=== PATIENT | female | born 1970 | race Caucasian/White ===

== ENCOUNTER 2023-11-22 09:38 | Emergency (ER) | payer MEDICAID, SELFPAY ==
[2023-11-22] VITALS (7 sets, daily range): BP systolic 121–134; BP diastolic 70–82; PULSE 75–108; RESP 14–18; TEMP 36.1–36.4; O2SAT 97–100; BMI 28.1
--- NOTE | ~2023-11-22 | CT_ITS ---
EXAMINATION: CT ABDOMEN AND PELVIS WITHOUT CONTRAST CLINICAL INFORMATION: Flank/lower abdominal pain with vomiting COMPARISON: None available. TECHNIQUE: Multidetector volumetric imaging was performed from the superior aspect of the liver through the pubic symphysis. Sagittal and coronal reformatted images were obtained on the technologist's workstation. This CT examination was performed using dose optimization techniques as appropriate, variously including the following: *Automated exposure control *Adjustment of mA and/or kV according to patient size (this includes techniques or standardized protocols for targeted exams where dose is matched to indication/reason for exam; i.e. extremities or head) *Use of iterative reconstruction technique DLP: 475 mGy-cm FINDINGS: LUNG BASES: The visualized lung bases are unremarkable. LIVER, GALLBLADDER, AND BILIARY TREE: Liver is of low attenuation due to hepatic steatosis. There are no intrahepatic masses or ductal dilatation seen. The liver is enlarged. There is no ascites seen possibly small calculi seen. PANCREAS: Unremarkable. SPLEEN: Unremarkable. ADRENAL GLANDS: Unremarkable. KIDNEYS AND URETERS: The kidneys are normal in size, shape, and attenuation. No hydronephrosis, hydroureter, or calculi seen. No perinephric stranding. BLADDER: Unremarkable. GASTROINTESTINAL TRACT: The small and large bowel are unremarkable. The appendix is unremarkable. ABDOMINAL WALL: No significant hernia is appreciated. LYMPH NODES: Normal. VASCULAR: Unremarkable. PELVIC VISCERA: Unremarkable. OSSEOUS STRUCTURES: There are mild degenerative changes with Schmorl's nodes in endplates of L1 T9, T8 vertebral bodies. CT/CT abdomen pelvis wo IV con IMPRESSION: Hepatomegaly and hepatic steatosis. Fleischner guidelines were followed.
--- NOTE | ~2023-11-22 | US_ITS ---
EXAMINATION: US ABDOMEN LIMITED CLINICAL INFORMATION: Elevated liver enzymes. Pain. COMPARISON: None available. TECHNIQUE: Real-time imaging of the right upper quadrant abdominal viscera. FINDINGS: The study is limited to evaluation of the gallbladder. There is sludge, versus a stone near the fundus, at 14 x 7 x 8 mm. Gallbladder is contracted and the gallbladder wall is thickened at 7 mm. No evidence for pericholecystic fluid. The patient does report discomfort and tenderness in the right upper quadrant during scanning. Common duct measures 4 mm in diameter. US/US abdomen limited IMPRESSION: Gallbladder sludge or small stones within the contracted gallbladder. The common duct is 7 mm.
[2023-11-22 10:03] LABS: MANUAL DIFF FLAG NO
[2023-11-22 10:05] LABS: Appearance Urine Hazy; Color Urine DK YELLOW; Glucose Urine UA Negative (Negative); Leukocyte Esterase Urine Negative (Negative); Nitrite Urine Positive (Negative); PH 6.5 (5.0-9.0); Specific Gravity - Urine 1.025 (1.005-1.025); UMIC TRIGGER UACC YES; Urine Blood Negative (Negative); Urine Ketones 15 mg/dL (Negative); Urine Protein 30 (1+) mg/dL (Neg-Trace)
[2023-11-22 10:07] LABS: Basophils Percent Auto 0.4 % (0-2); Eosinophils Absolute Auto 0.1 X10*3/uL (0.0-0.4); Hematocrit 36.7 % (37.0-47.0); Hemoglobin 12.7 g/dl (12.0-16.0); Imm Gran Abs Auto 0.01 X10*3/uL (0.00-0.03); Imm Gran Pct Auto 0.1 % (0.0-0.4); Lymphocytes Absolute Auto 1.3 X10*3/uL (1.2-4.9); Lymphocytes Percent Auto 18.4 % (20-40); Mean Corpuscular HGB Conc 34.6 g/dl (31.0-35.0); Mean Corpuscular Hemoglobin 37.5 pg (27.0-33.0); Mean Corpuscular Volume 108.3 fL (80.0-98.0); Mean Platelet Volume 10.9 fL (9.4-12.3); Monocytes Absolute Auto 0.5 X10*3/uL (0.1-1.2); Monocytes Percent Auto 7.4 % (2-11); Neutrophils Absolute Auto 5.3 x10*3/uL (2.0-8.3); Neutrophils Percent Auto 72.7 % (45-73); Platelet Count 105 X10*3/uL (160-400); Red Blood Count 3.39 X10*6/uL (4.20-5.50); Red Cell Distribution Width 15.4 % (11.0-16.0); White Blood Count 7.3 X10*3/uL (4.8-10.8)
--- NOTE | 2023-11-22 10:13 | ED_ITS ---
HPI - General Adult General Chief complaint: Abdominal Pain Stated complaint: Back and Private Area Pain Time Seen by Provider: 11/22/23 10:12 Source: patient Mode of arrival: ambulatory Limitations: language barrier History of Present Illness HPI narrative: 53 F, [place] speaking only, fitness attendant was used for this encounter. Patient was also accompanied by her family member. She reports right-sided flank pain and lower abdomen pain x2 weeks. Symptoms started when she was back in [place]. Patient was informed that she is losing protein in her urine, however, she was not able to elaborate on the details. She reports that symptoms are intermittent and also accompanied by nausea and vomiting. She states that she experienced symptoms last night but today is feeling somewhat better. She reports history of intermittent constipation and diarrhea. Last bowel movement was this morning and was normal in appearance, no blood or melena. Patient also states that she is drinking plenty of water, however, does not produce much urine and her urine appears dark in color. Patient also notes intermittent pain with urination and urgency. She denies fever, prior similar symptoms, chest pain, shortness of breath, cough, hemoptysis or any other symptoms. Patient notes that since 2 days ago she has been experiencing mild headaches and feeling lightheaded. Related Data Previous Rx's ?Medication ?Instructions ?Recorded cefdinir 300 mg capsule 300 mg PO BID 10 days #20 caps 11/22/23 ondansetron 4 mg disintegrating 4 mg PO Q6H PRN nausea and 11/22/23 tablet vomiting #20 tabs Allergies Allergy/AdvReac Type Severity Reaction Status Date / Time No Known Allergies Allergy Verified 11/22/23 09:49 Review of Systems 2 Review of Systems: per HPI Yes all other systems are reviewed and are negative [facility] Social History Social History Unable to assess alcohol history related to: Unknown Smoked in Last 30 Days: No Advance Directives: No Advance Directives Information Provided: Yes Do you have a plan to hurt others: No Plan Patient : No Physical Exam ED Vital Signs: Vital Signs - 24 hr 11/22/23 09:43 11/22/23 11:46 11/22/23 11:47 Temperature 97.2 F Pulse Rate 108 H 77 75 Respiratory Rate 18 Blood Pressure 122/80 121/75 130/79 Pulse Oximetry 100 Oxygen Delivery Method Room Air 11/22/23 11:50 11/22/23 14:25 11/22/23 17:50 Temperature 97.0 F 97.5 F Pulse Rate 83 85 80 Respiratory Rate 14 14 Blood Pressure 133/82 134/70 126/80 Pulse Oximetry 97 100 Oxygen Delivery Method Room Air Room Air BMI result Body Mass Index 28.1 Const General: healthy appearing, comfortable, no acute distress, well developed and alert Nutritional Appearance: average body habitus Orientation/consciousness: patient oriented x3 Limitations: language barrier HENMT Head: Yes normal to inspection, Yes normocephalic and Yes atraumatic Mouth: Normal oral and palatal mucosa present, lip normal, tongue normal and moist mucous membranes Eyes General: appearance normal, both eyes and all related structures Pupils: Equal, round and reactive pupils present EOM: EOMs intact bilaterally Neck Neck: Yes normal visual inspection, Yes full ROM and Yes no lymphadenopathy Resp Effort & Inspection: normal respiratory effort and able to speak in complete sentences Auscultation: clear to auscultation bilaterally Cardio Jugular venous distension: no JVD Rate: tachycardic Rhythm: regular rhythm and abnormal rhythm Heart sounds: S1 normal heart sound present and S2 normal heart sound present Peripheral pulses: Peripheral pulses 2+ throughout GI Other: no rebound or guarding; no peritoneal signs; No RUQ tenderness; negative Crockett's sign. Inspection: Yes normal to inspection Palpation (GI): Soft to palpation and Tenderness to palpation present (GI) (mild tenderness to LLQ;) in the LLQ Auscultation: normal bowel sounds General: Yes CVA tenderness (mild right CVA tenderness ) Back/Spine/Pelvis Back: CVA tenderness (mild right CVA tenderness ) Skin General skin exam: no rashes or lesions noted Neuro General: patient oriented x3, gait normal and no focal motor deficits Cranial nerves: Yes Equal, round and reactive pupils present Motor exam (neuro): 5/5 motor strength present throughout Medical Decision Making Medical Decision Making MDM Narrative: 53 yo female with PMH of childhood hepatitis B. who presents to the ED with complaint of right upper intermittent abdomen/flank pain, nausea and vomiting. HPI and physical exam as above. Upon presentation patient is hemodynamically stable, alert and oriented X3, vital sign are reassuring, patient is well appearing, no acute distress, not acutely ill or toxic. laboratory results are without leukocytosis but notable for elevated LFTs. Unclear if findings are chronic as there are no previous labs to compare. Abdominal CT showed: Hepatomegaly and hepatic steatosis. Billiary US showed: The study is limited to evaluation of the gallbladder. There is sludge, versus a stone near the fundus, at 14 x 7 x 8 mm. Gallbladder is contracted and the gallbladder wall is thickened at 7 mm. No evidence for pericholecystic fluid. The patient does report discomfort and tenderness in the right upper quadrant during scanning. Given results and clinical presentation case was discussed with surgery window air conditioner installer, Dr. Potts, who advised low fat diet, outpatient labs in 3 days and close outpatient follow up with surgery early next week. Discussed results of evaluation and surgery recommendations with the patient. it was also noted that patient's urinalysis was positive for nitrates, 1+ protein and 1+ bacteria; given symptoms of urinary urgency and presence of back pain concerned for possible pyelonephritis. Will administer one dose of Ceftriaxone 1g IV and provide prescription for Cefdnir 300mg PO X10 days. patient was advised to follow up with surgery outpatient and call local primary care clinics to establish care for proper follow up. Advised on supportive care. Discussed return precautions. Discussed with the patient when to seek medical attention and return to the ED for re-evaluation. Patient expressed understanding and agreed to the treatment plan. Case was discussed with ED attending physician Dr. Marcum who concurred evaluation and treatment plan. Admission/Observation Consideration of admission/observation: Escalation of care including admission/observation considered Consult Healthcare Provider Management of the patient was discussed with: Editor & Co Founder (General Surgery window air conditioner installer Dr. Potts) Lab Data MDM Lab Attestation statement: I reviewed the patient's lab results. 11/22/23 09:59 11/22/23 09:59 Labs: Lab Results 11/22/23 Range/Units 09:59 WBC 7.3 (4.8-10.8) X10*3/uL RBC 3.39 L (4.20-5.50) X10*6/uL Hgb 12.7 (12.0-16.0) g/dl Hct 36.7 L (37.0-47.0) % MCV 108.3 H (80.0-98.0) fL MCH 37.5 H (27.0-33.0) pg MCHC 34.6 (31.0-35.0) g/dl RDW 15.4 (11.0-16.0) % Plt Count 105 L (160-400) X10*3/uL MPV 10.9 (9.4-12.3) fL Immature Gran % (Auto) 0.1 (0.0-0.4) % Neut % (Auto) 72.7 (45-73) % Lymph % (Auto) 18.4 L (20-40) % [place] % (Auto) 7.4 (2-11) % Eos % (Auto) 1.0 (0-4) % Baso % (Auto) 0.4 (0-2) % Lymph # (Auto) 1.3 (1.2-4.9) X10*3/uL [place] # (Auto) 0.5 (0.1-1.2) X10*3/uL Eos # (Auto) 0.1 (0.0-0.4) X10*3/uL Baso # (Auto) 0.0 (0.0-0.2) X10*3/uL Abs Immat Gran (auto) 0.01 (0.00-0.03) X10*3/uL Absolute Neuts (auto) 5.3 (2.0-8.3) x10*3/uL Absolute Nucleated RBC 0.000 (0.0-0.012) X10*3/uL Nucleated RBC % (auto) 0.0 (0.0-0.2) /100WBC Sodium 136 (135-145) mmol/L Potassium 3.6 (3.3-5.1) mmol/L Chloride 98 (96-108) mmol/L Carbon Dioxide 27 (22-29) mmol/L Anion Gap 15 (12-20) BUN 7 L (9-16) mg/dL Creatinine 0.65 (0.5-1.4) mg/dL Estim Creat Clear Calc 82.4 Estimated GFR > 60 Random Glucose 103 (60-115) mg/dL Calcium 10.7 H (8.4-10.2) mg/dL Total Bilirubin 2.4 H (0.0-1.0) mg/dL Direct Bilirubin 1.2 H (0.0-0.5) mg/dL AST 171 H (5-31) U/L ALT 40 H (0-31) U/L Alkaline Phosphatase 166 H (39-117) U/L Total Protein 8.4 H (6.5-8.0) g/dL Albumin 3.6 (3.5-5.0) g/dL Lipase 48 (8-78) U/L Urine Color DK YELLOW Urine Appearance Hazy Urine pH 6.5 (5.0-9.0) Ur Specific Pedro 1.025 (1.005-1.025) Urine Protein 30 (1+) H (Neg-Trace) mg/dL Urine Glucose (UA) Negative (Negative) mg/dL Urine Ketones 15 (Negative) mg/dL Urine Blood Negative (Negative) Urine Nitrite Positive H (Negative) Ur Leukocyte Esterase Negative (Negative) Urine RBC 0-2 (0-2) /HPF Urine WBC 0-5 (0-5) /HPF Ur Squamous Epith Cells 3-5 (0-2) /HPF Calcium Oxalate Crystal Present Urine Bacteria 1+ (None Seen) Hyaline Casts 0-2 (0-2) /LPF Radiology Impression Discussion of test interpretation with radiology: I have reviewed the radiologist's reading. Prescription Management I considered prescription management with: Antibiotic (Ceftriaxone 1g IV) Chronic Conditions Patient?s care impacted by: Other Hepatitis B Social Determinants Patient?s care significantly limited by Social Determinants of Health including: Problems related to primary support group Needs Primary Care Provider Discharge Plan Discharge Clinical Impression: Biliary colic, Pyelonephritis Patient Disposition: Home, Self-Care Instructions: Biliary Colic (ED), Kidney Infection (ED) Additional Instructions: Please, return to the hospital for blood work on Tuesday11/25/2023. Call General surgery office (contact information is provided) to schedule a follow up appointment for further management and evaluation of the gallstones. Please, avoid any fatty, spicy, fried foods it will help to prevent symptoms of pain, nausea, and vomiting. You were also given prescription for zofran (nausea medication) to take as needed for nausea. We were also concerned for kidney infection. You were given prescription for antibiotics. Please, take as advised and make sure to complete the entire course even if you feel better. Please, call local primary care clinics to establish care for proper follow up and treatment of chronic conditions. if you develop any new or concerning symptoms, please return to the ED for re- evaluation. Prescriptions: New ondansetron 4 mg tablet,disintegrating 4 mg PO Q6H PRN (Reason: nausea and vomiting) Qty: 20 0RF cefdinir 300 mg capsule 300 mg PO BID 10 Days Qty: 20 0RF Referrals: Eli Potts MD [Physician] - Print Language: [place]
[2023-11-22 10:14] LABS: Bacteria Urine 1+ (None Seen); Calcium Oxalate Crystals Urine Present; Hyaline Casts Urine 0-2 /LPF (0-2); RBC Urine 0-2 /HPF (0-2); UACC Culture Trigger YES; WBC Urine 0-5 /HPF (0-5)
[2023-11-22 10:28] LABS: Alanine Aminotransferase 40 U/L (0-31); Albumin Level 3.6 g/dL (3.5-5.0); Alkaline Phosphatase 166 U/L (39-117); Anion Gap 15 (12-20); Aspartate Amino Transferase 171 U/L (5-31); Bilirubin Direct 1.2 mg/dL (0.0-0.5); Bilirubin Total 2.4 mg/dL (0.0-1.0); Blood Urea Nitrogen 7 mg/dL (9-16); Calcium 10.7 mg/dL (8.4-10.2); Carbon Dioxide 27 mmol/L (22-29); Chloride 98 mmol/L (96-108); Creatinine Clr Calc Pharmacy 82.4; Estimated Glomerular Filt Rate > 60; Glucose Random 103 mg/dL (60-115); Lipase 48 U/L (8-78); Potassium 3.6 mmol/L (3.3-5.1); Sodium 136 mmol/L (135-145); Total Protein 8.4 g/dL (6.5-8.0)
[2023-11-22] MEDS: cefTRIAXone sodium 1 GM in 0.9 % Sodium Chloride 50 ML IV (18:30)
== END 2023-11-22 19:39 | disposition home or self-care (01) ==
PROVIDERS: Emergency Provider Emergency Medicine
DX: N12 Tubulo-interstitial nephritis, not specified as acute or chronic (principal); K80.50 Calculus of bile duct without cholangitis or cholecystitis without obstruction
CPT/HCPCS: 36415; 74176; 76705; 80048; 80076; 81001; 83690; 85025; 87086; 96365; 99284; J0696

== ENCOUNTER 2023-11-28 13:38 | Emergency (ER) | payer MEDICAID, SELFPAY ==
[2023-11-28 13:43] VITALS: BP 102/61; PULSE 92; RESP 16; TEMP 37.5; O2SAT 100; BMI 27.5
--- NOTE | 2023-11-28 13:46 | ED.GENADULT ---
[facility] - General Adult General Chief complaint: Abdominal Pain Stated complaint: abd pain Time Seen by Provider: 11/28/23 19:39 Source: patient and variety performer Mode of arrival: ambulatory History of Present Illness HPI narrative: 53-year-old female, recently moved here from [place] and seen here last Tuesday and diagnosed with urinary tract infection and started on cefdinir presents stating that she has back pain bilaterally which radiates into her abdomen, patient does take CBD on her cigarettes which she smokes daily for chronic pain. She has recently been accepted onto [facility] and is in the process of setting up care with a primary care doctor. She otherwise denies any fevers or chills or nausea or vomiting but does report frequent urination. Related Data Previous Rx's ?Medication ?Instructions ?Recorded ondansetron 4 mg disintegrating 4 mg PO Q6H PRN nausea and 11/22/23 tablet vomiting #20 tabs Allergies Allergy/AdvReac Type Severity Reaction Status Date / Time No Known Allergies Allergy Verified 11/28/23 13:44 Review of Systems Review of Systems: Pertinent positives and negatives as stated in [facility] Past Medical History Source: nursing notes reviewed Social History Social History Unable to assess alcohol history related to: Unknown Advance Directives: No Advance Directives Information Provided: Yes Do you have a plan to hurt others: No Plan Physical Exam ED Vital Signs: Vital Signs - 24 hr 11/28/23 13:43 Temperature 99.5 F Pulse Rate 92 Respiratory Rate 16 Blood Pressure 102/61 Pulse Oximetry 100 Oxygen Delivery Method Room Air BMI result Body Mass Index 27.5 VITAL SIGNS: Reviewed. GENERAL: Well developed, well nourished, in no acute distress. HEAD: Normocephalic/atraumatic EYES: PERRLA, EOMI EARS: Ext canals without abnormality NOSE: Nares patent bilateral OROPHARYNX: no oral lesions noted, posterior pharynx clear NECK: Supple, no adenopathy LUNGS: Normal breath sounds. No adventitious sounds or accessory muscle use. SpO2<100> CARDIOVASCULAR: Regular rate and rhythm without noted murmurs ABDOMEN: Soft, non-tender, non-distended with bowel sounds. MUSCULOSKELETAL: No tenderness, deformities, or effusions noted on gross inspection. EXTREMITIES: No cyanosis, clubbing or edema. SKIN: Inspection of the skin reveals no rashes NEUROLOGIC: Alert and oriented x 4. Strength and sensation to light touch were grossly intact x 4. Course Course Course Narrative: RME performed by Shanice Harper PA-C. Patient is a 53 year old assigned female at presenting to the emergency department with abdominal pain and nausea. Patient states that she was recently seen here recently for a biliary colic and a kidney infection. Patient states that she has been drinking a lot of water and not making much urine. Detailed physical exam and review of systems are deferred to the soil checker. Labs ordered. Patient placed back in the waiting room pending room availability and results. Medical Decision Making Medical Decision Making [facility] Narrative: 53-year-old female with history and clinical presentation, DDX: UTI/diabetes/psychiatric basis for frequent urination/chronic back pain I reviewed all investigations and hematologic indices are stable when compared to prior visit, there is no leukocytosis or left shift, there is no anemia or thrombocytopenia. Chemistry indices negative for DANAY or electrolyte derangements in LFTs are chronically stable with elevated transaminases and suspect that this is due to underlying alcohol use. No findings or evidence to suggest acute intra-abdominal infection/renal colic/pyelonephritis. Viral testing is negative for influenza/RSV/COVID-19. I reviewed last visit in although patient's urinalysis was positive for nitrite, microbiology of the urine does not report any bacterial infection. Will direct patient to stop antibiotics. There is no evidence of elevated glucose to explain patient's frequent urination. Patient did not provide a urine sample for today, magnesium being low and repleted with 400 mg of magnesium oxide. Patient was strongly encouraged to follow-up with your primary care doctor and also instructed to stop antibiotics as there was no growth on her urine culture. Differential Diagnosis Differential Diagnoses: The differential diagnosis associated with the presentation includes Please see the discussion above Admission/Observation Consideration of admission/observation: Escalation of care including admission/observation considered Please see the discussion above Lab Data [facility] Lab Attestation statement: I reviewed the patient's lab results. Please see the discussion above 11/28/23 15:22 11/28/23 15:22 Labs: Lab Results 11/28/23 Range/Units 15:22 WBC 5.6 (4.8-10.8) X10*3/uL RBC 3.46 L (4.20-5.50) X10*6/uL Hgb 12.8 (12.0-16.0) g/dl Hct 37.8 (37.0-47.0) % MCV 109.2 H (80.0-98.0) fL MCH 37.0 H (27.0-33.0) pg MCHC 33.9 (31.0-35.0) g/dl RDW 16.1 H (11.0-16.0) % Plt Count 209 D (160-400) X10*3/uL MPV 10.1 (9.4-12.3) fL Immature Gran % (Auto) 0.2 (0.0-0.4) % Neut % (Auto) 63.6 (45-73) % Lymph % (Auto) 19.3 L (20-40) % [place] % (Auto) 14.8 H (2-11) % Eos % (Auto) 1.4 (0-4) % Baso % (Auto) 0.7 (0-2) % Lymph # (Auto) 1.1 L (1.2-4.9) X10*3/uL [place] # (Auto) 0.8 (0.1-1.2) X10*3/uL Eos # (Auto) 0.1 (0.0-0.4) X10*3/uL Baso # (Auto) 0.0 (0.0-0.2) X10*3/uL Abs Immat Gran (auto) 0.01 (0.00-0.03) X10*3/uL Absolute Neuts (auto) 3.6 (2.0-8.3) x10*3/uL Absolute Nucleated RBC 0.000 (0.0-0.012) X10*3/uL Nucleated RBC % (auto) 0.0 (0.0-0.2) /100WBC Sodium 141 (135-145) mmol/L Potassium 4.1 (3.3-5.1) mmol/L Chloride 106 (96-108) mmol/L Carbon Dioxide 28 (22-29) mmol/L Anion Gap 11 L (12-20) BUN 9 (9-16) mg/dL Creatinine 0.68 (0.5-1.4) mg/dL Estim Creat Clear Calc 91.2 Estimated GFR > 60 Random Glucose 91 (60-115) mg/dL Calcium 10.2 (8.4-10.2) mg/dL Magnesium 1.5 L (1.6-2.6) mg/dL Total Bilirubin 0.9 (0.0-1.0) mg/dL AST 121 H (5-31) U/L ALT 35 H (0-31) U/L Alkaline Phosphatase 130 H (39-117) U/L Total Protein 7.4 (6.5-8.0) g/dL Albumin 3.3 L (3.5-5.0) g/dL Influenza Type A (PCR) NEGATIVE (Negative) Influenza Type B (PCR) NEGATIVE (Negative) RSV RNA Qual (PCR) NEGATIVE (Negative) SARS-CoV-2 RNA (RT-PCR) NEGATIVE (Negative) External Record Review External record reviewed: Outpatient record, Prior outpatient labs and Prior outpatient radiology Chronic Conditions Anxiety, depression, everyday smoker Critical Care Time Critical Care Time Critical Care Time: Yes Total Critical Care Time: 45 Attestation: I personally attest to this time spent taking care of the patient. Discharge Plan Discharge Clinical Impression: Chronic pain, Anxiety, Depression, Frequent urination, Hypomagnesemia Patient Disposition: Home, Self-Care Instructions: Chronic Pain (ED) Additional Instructions: 1. I reviewed the urine culture from your visit last week, there is no bacterial growth and recommend that you stop taking antibiotics at this time. 2. Your workup today was otherwise within normal limits with the exception of a low magnesium and your provided with magnesium oxide (this is available [email or web address]). 3. Recommend [id number] Tylenol/ibuprofen/lidocaine patch for your back pain. Prescriptions: Discontinued cefdinir 300 mg capsule 300 mg PO BID 10 Days Qty: 20 0RF No Action ondansetron 4 mg tablet,disintegrating 4 mg PO Q6H PRN (Reason: nausea and vomiting) Qty: 20 0RF Print Language: Grenadian
[2023-11-28 15:27] LABS: MANUAL DIFF FLAG NO
[2023-11-28 15:28] LABS: Basophils Percent Auto 0.7 % (0-2); Eosinophils Absolute Auto 0.1 X10*3/uL (0.0-0.4); Eosinophils Percent Auto 1.4 % (0-4); Hematocrit 37.8 % (37.0-47.0); Hemoglobin 12.8 g/dl (12.0-16.0); Imm Gran Abs Auto 0.01 X10*3/uL (0.00-0.03); Imm Gran Pct Auto 0.2 % (0.0-0.4); Lymphocytes Absolute Auto 1.1 X10*3/uL (1.2-4.9); Lymphocytes Percent Auto 19.3 % (20-40); Mean Corpuscular HGB Conc 33.9 g/dl (31.0-35.0); Mean Corpuscular Volume 109.2 fL (80.0-98.0); Mean Platelet Volume 10.1 fL (9.4-12.3); Monocytes Absolute Auto 0.8 X10*3/uL (0.1-1.2); Monocytes Percent Auto 14.8 % (2-11); Neutrophils Absolute Auto 3.6 x10*3/uL (2.0-8.3); Neutrophils Percent Auto 63.6 % (45-73); Platelet Count 209 X10*3/uL (160-400); Red Blood Count 3.46 X10*6/uL (4.20-5.50); Red Cell Distribution Width 16.1 % (11.0-16.0); White Blood Count 5.6 X10*3/uL (4.8-10.8)
[2023-11-28 16:04] LABS: Influenza A PCR NEGATIVE (Negative); Influenza B PCR NEGATIVE (Negative); Resp Syncy Virus RNA Qual PCR NEGATIVE (Negative); SARS COV2 PCR INHOUSE NEGATIVE (Negative)
[2023-11-28 16:10] LABS: Alanine Aminotransferase 35 U/L (0-31); Albumin Level 3.3 g/dL (3.5-5.0); Alkaline Phosphatase 130 U/L (39-117); Anion Gap 11 (12-20); Aspartate Amino Transferase 121 U/L (5-31); Bilirubin Total 0.9 mg/dL (0.0-1.0); Blood Urea Nitrogen 9 mg/dL (9-16); Calcium 10.2 mg/dL (8.4-10.2); Carbon Dioxide 28 mmol/L (22-29); Chloride 106 mmol/L (96-108); Creatinine Clr Calc Pharmacy 91.2; Estimated Glomerular Filt Rate > 60; Glucose Random 91 mg/dL (60-115); Magnesium 1.5 mg/dL (1.6-2.6); Potassium 4.1 mmol/L (3.3-5.1); Sodium 141 mmol/L (135-145); Total Protein 7.4 g/dL (6.5-8.0)
[2023-11-28] MEDS: Magnesium Oxide 400 MG TABLET PO (21:09)
[2023-11-28 21:12] VITALS: BP 104/73; PULSE 69; RESP 16; TEMP 36.8; O2SAT 97
[2023-11-28 21:33] VITALS: BP 104/73; PULSE 69; RESP 16; TEMP 36.8; O2SAT 97
== END 2023-11-28 21:33 | disposition home or self-care (01) ==
PROVIDERS: Physician Assistant Medical; Emergency Provider Student in an Organized Health Care Education/Training Program
DX: R10.9 Unspecified abdominal pain (principal); F41.9 Anxiety disorder, unspecified; R35.0 Frequency of micturition; E83.42 Hypomagnesemia; F32.A Depression, unspecified; G89.29 Other chronic pain; Z03.818 Encounter for observation for suspected exposure to other biological agents ruled out
CPT/HCPCS: 0241U; 80053; 83735; 85025; 99283; 99284

== ENCOUNTER 2023-12-01 08:52 | Outpatient (AMB) | payer MEDICAID, SELFPAY ==
[2023-12-01 08:52] VITALS: BMI 27.5
--- NOTE | 2023-12-01 08:52 | MHC.OFFVIS ---
Vital Signs 12/01/23 08:52 Height 5 ft 4 in Weight 160 lb 0.008 oz BMI 27.5 Intake Visit Reasons: Biliary colic, gallstones Intake Note: This patient presents for [facility] ER follow-up for biliary colic, gallstones. Patient c/o; reports completed one round of abx for UTI, reports notices she has a hematoma on her abdomen and she does not recall hitting the area, reports incomplete urination, reports abodminal pain which radiates towards. Hand Ornament Maker Required: Yes Hand Ornament Maker Language: Client Specialist Name: David Information Interpreted: non-clinical & clinical Accompanied by: Other Relationship Allergies No Known Allergies Allergy (Verified 12/01/23 09:00) Medication List - Last Reconciled 12/01/23 by Anthony Pickens MD buspirone 5 mg PO BID calcium carbonate-vitamin D3 600 mg-20 mcg (800 unit) 1 tab PO DAILY ondansetron 4 mg PO Q6H PRN risperidone (Risperdal) 0.5 mg PO DAILY sertraline (Zoloft) 100 mg PO DAILY zolpidem (Ambien) 10 mg PO BEDTIME HPI HPI Biliary colic, gallstones: Details: 53-year-old female referred for gallstones. She went to the ER last 2023 because of what she describes as difficulty with urinating. She says that she had pain mostly on the suprapubic area and felt that she could not urinate at all. She had a CAT scan and ultrasound showing stones and sludge as well without cholecystitis She says she is able to void a little more but says she still has excision of not fully emptying. She says that she still feels that she has to urinate again after each time she needs. She describes continuing pain mostly in lower abdomen the back. She describes having some vomiting last week. She denies any fever or chills She [place] the country from [place] and does not have any primary care physician. [facility] Medical History (Updated 12/01/23 @ 09:45 by Anthony Pickens MD) Gallstones Surgical History No pertinent past surgical history Family History Other Family history unknown Social History Unable to assess alcohol history related to: Unknown Review of Systems Const Denies chills and Denies fever(s) Card Denies chest pain, Denies dyspnea and Denies dyspnea on exertion Resp Denies cough, Denies dyspnea and Denies dyspnea on exertion GI Denies hematochezia and Denies change in bowel habits Denies hematuria and Reports difficulty voiding Musc Denies back pain and Denies limited range of motion Neuro Denies focal weakness and Denies convulsions Psych Denies depression and Denies mood swings Physical Exam Vital Signs: BMI result Body Mass Index 27.5 Const General: comfortable and no acute distress Orientation/consciousness: patient oriented x3 Neck Neck: Yes no lymphadenopathy Resp Auscultation: clear to auscultation bilaterally Cardio Rhythm: regular rhythm GI Other: Verymild tenderness on lower abdomen Palpation (GI): Soft to palpation, Tenderness to palpation present (GI) and no guarding Neuro General: patient oriented x3 Assessment & Plan Assessment & Plan (1) Gallstones: Code(s): K80.20 - Calculus of gallbladder without cholecystitis without obstruction Category: Medical Plan: Her constellation of symptoms are very atypical of gallbladder disease. She does not have any tenderness. She describes a lot of difficulty with urination and feels that she does not empty well. Her UA in the ER shows nitrites I told her that at this time I would hold on doing cholecystectomy in view of her atypical symptoms. I her that she needs to be seen by a urologist and should establish a relationship with a primary care physician. Her family says they plan to bring her to the urgent care in [facility] so that she can establish care. I told her that I would like to see her again in about a month to see how she is doing and re-evaluate her. The family and the patient appeared to be comfortable with the plan. Coding Level of Care Code New Pt Level 3 (85298) Diagnoses Gallstones K80.20
== END 2023-12-01 09:19 | disposition home or self-care (01) ==
PROVIDERS: Visit Provider Surgery
DX: K80.20 Calculus of gallbladder without cholecystitis without obstruction (principal)
CPT/HCPCS: 99203

== ENCOUNTER → 2023-12-01 08:52 | Outpatient (BNVA) | payer MEDICAID, SELFPAY | PROVIDERS: Visit Provider Surgery | DX: K80.20 Calculus of gallbladder without cholecystitis without obstruction (principal) | CPT/HCPCS: 99202 ==

== ENCOUNTER 2023-12-09 11:31 | Outpatient (REF) | payer MEDICAID, SELFPAY ==
[2023-12-09 13:51] LABS: Alanine Aminotransferase 41 U/L (0-31); Albumin Level 3.4 g/dL (3.5-5.0); Alkaline Phosphatase 130 U/L (39-117); Aspartate Amino Transferase 107 U/L (5-31); Bilirubin Direct 0.4 mg/dL (0.0-0.5); Bilirubin Total 0.8 mg/dL (0.0-1.0); Magnesium 1.6 mg/dL (1.6-2.6); Total Protein 7.5 g/dL (6.5-8.0)
== END 2023-12-09 11:32 | disposition home or self-care (01) ==
LOC: HO.HHCL 11:31
PROVIDERS: Visit Provider Family Medicine
DX: R10.9 Unspecified abdominal pain (principal)
CPT/HCPCS: 36415; 80076; 83735

== ENCOUNTER 2023-12-15 08:57 | Outpatient (AMB) | payer MEDICAID, SELFPAY ==
--- NOTE | 2023-12-15 09:03 | MHC.OFFVIS ---
Vital Signs 12/15/23 09:07 Height 5 ft 4 in Weight 152 lb BMI 26.1 BP 110/67 Blood Pressure Location Rt brachial Position Standing Pulse 78 Intake Visit Reasons: one month follow-up gallstones Intake Note: This patient presents for a follow-up assessment for gallstones. Patient c/o; reports LLQ abdominal pain, reports constipation, reports no rectal bleeding or has not noticed blood in her stools, reports feeling bloated, reports postprandial nausea, reports no vomiting, reports no longer has the lower back pain, reports urination is back to normal color and output. Air Compressor Operator Required: Yes Air Compressor Operator Language: Senior Sous Chef Name: David Information Interpreted: non-clinical & clinical Accompanied by: Self / Same As Patient Allergies No Known Allergies Allergy (Verified 12/15/23 09:10) Medication List - Last Reconciled 12/15/23 by Anthony Pickens MD buspirone 5 mg PO BID calcium carbonate-vitamin D3 600 mg-20 mcg (800 unit) 1 tab PO DAILY ondansetron 4 mg PO Q6H PRN risperidone (Risperdal) 0.5 mg PO DAILY sertraline (Zoloft) 100 mg PO DAILY zolpidem (Ambien) 10 mg PO BEDTIME HPI HPI one month follow-up gallstones: Details: She is here for follow-up for gallstones. I would seen her in the office about 3 weeks ago after she was referred by the ER for gallstones. However, her symptoms are very atypical at that time. She did not have any significant right upper quadrant pain or tenderness She had complained of difficulties with urination so I had asked her to see her urologist with regards to this She says she does not have any right upper quadrant pain. She describes some periodic pain on the pelvic area and on the left lower quadrant. She denies GI complaints. She says she feels well overall. [facility] Medical History Gallstones Surgical History No pertinent past surgical history Family History Other Family history unknown Social History Unable to assess alcohol history related to: Unknown Review of Systems Const Denies chills and Denies fever(s) Card Denies chest pain, Denies dyspnea and Denies dyspnea on exertion Resp Denies cough, Denies dyspnea and Denies dyspnea on exertion GI Denies hematochezia and Denies change in bowel habits Denies hematuria Musc Denies back pain and Denies limited range of motion Neuro Denies focal weakness and Denies convulsions Psych Denies depression and Denies mood swings Physical Exam Vital Signs: Last Vital Signs Pulse 78 12/15/23 09:07 BP 110/67 12/15/23 09:07 BMI result Body Mass Index 26.1 Const General: comfortable and no acute distress Orientation/consciousness: patient oriented x3 Neck Neck: Yes no lymphadenopathy Resp Auscultation: clear to auscultation bilaterally Cardio Rhythm: regular rhythm GI Palpation (GI): Soft to palpation, nontender and no guarding Neuro General: patient oriented x3 Assessment & Plan Assessment & Plan (1) Gallstones: Code(s): K80.20 - Calculus of gallbladder without cholecystitis without obstruction Category: Medical Plan: She denies significant symptoms that may suggest gallbladder disease. I did tell her that she should continue to follow up with her urologist because of her urinary complaints. I told her that I would like to see her again after she is seen by her urologist in January so we can see how she is doing. She understands that she may benefit from cholecystectomy if she has symptoms. She has comfortable with the plan. Coding Level of Care Code Est Pt Level 3 (72086) Diagnoses Gallstones K80.20
[2023-12-15 09:07] VITALS: BP 110/67; PULSE 78; BMI 26.1
== END 2023-12-15 09:18 | disposition home or self-care (01) ==
LOC: HO.HGS 08:58
PROVIDERS: PCP Family Medicine; Referring Provider Family Medicine; Visit Provider Surgery
DX: K80.20 Calculus of gallbladder without cholecystitis without obstruction (principal)
CPT/HCPCS: 99213

== ENCOUNTER → 2023-12-15 08:57 | Outpatient (BNVA) | payer MEDICAID, SELFPAY | PROVIDERS: PCP Family Medicine; Visit Provider Surgery | DX: K80.20 Calculus of gallbladder without cholecystitis without obstruction (principal) | CPT/HCPCS: 99212 ==

== ENCOUNTER 2024-01-18 15:07 | Outpatient (REF) | payer MEDICAID, SELFPAY ==
[2024-01-18 16:13] LABS: MANUAL DIFF FLAG NO
[2024-01-18 16:17] LABS: Basophils Percent Auto 0.4 % (0-2); Eosinophils Absolute Auto 0.1 X10*3/uL (0.0-0.4); Eosinophils Percent Auto 1.2 % (0-4); Hemoglobin 12.6 g/dl (12.0-16.0); Imm Gran Abs Auto 0.01 X10*3/uL (0.00-0.03); Imm Gran Pct Auto 0.1 % (0.0-0.4); Lymphocytes Absolute Auto 1.3 X10*3/uL (1.2-4.9); Lymphocytes Percent Auto 19.4 % (20-40); Mean Corpuscular HGB Conc 34.1 g/dl (31.0-35.0); Mean Corpuscular Hemoglobin 32.4 pg (27.0-33.0); Mean Corpuscular Volume 95.1 fL (80.0-98.0); Mean Platelet Volume 9.9 fL (9.4-12.3); Monocytes Absolute Auto 0.5 X10*3/uL (0.1-1.2); Monocytes Percent Auto 7.5 % (2-11); Neutrophils Absolute Auto 4.8 x10*3/uL (2.0-8.3); Neutrophils Percent Auto 71.4 % (45-73); Platelet Count 197 X10*3/uL (160-400); Red Blood Count 3.89 X10*6/uL (4.20-5.50); Red Cell Distribution Width 14.6 % (11.0-16.0); White Blood Count 6.7 X10*3/uL (4.8-10.8)
[2024-01-18 16:42] LABS: Alanine Aminotransferase 26 U/L (0-31); Albumin Level 3.6 g/dL (3.5-5.0); Alkaline Phosphatase 134 U/L (39-117); Anion Gap 13 (12-20); Aspartate Amino Transferase 81 U/L (5-31); Bilirubin Total 1.2 mg/dL (0.0-1.0); Blood Urea Nitrogen 8 mg/dL (9-16); Calcium 10.9 mg/dL (8.4-10.2); Carbon Dioxide 26 mmol/L (22-29); Chloride 105 mmol/L (96-108); Estimated Glomerular Filt Rate > 60; Glucose Random 98 mg/dL (60-115); Sodium 140 mmol/L (135-145); Total Protein 7.7 g/dL (6.5-8.0)
[2024-01-18 17:08] LABS: Appearance Urine Cloudy; Color Urine Dark Yellow; Glucose Urine UA Negative (Negative); Leukocyte Esterase Urine Negative (Negative); Nitrite Urine Negative (Negative); Urine Blood Negative (Negative); Urine Ketones Negative (Negative); Urine Protein Negative (Neg-Trace)
[2024-01-18 17:23] LABS: Bacteria Urine 1+ (None Seen); Hyaline Casts Urine 0-2 /LPF (0-2); RBC Urine 0-2 /HPF (0-2); WBC Urine 0-5 /HPF (0-5)
[2024-01-19 10:15] LABS: HBsAGNum1 0.41 S/CO (0.00-0.99); Hepatitis A Antibody IgG REACTIVE (Nonreactive); Hepatitis A Antibody IgM 0.22 Index (0-0.79); Hepatitis B Surface Antigen Negative (Negative); ~HepC Num1 0.28 S/CO (0.00-0.79); ~Hepatitis A Antibody IgM Nonreactive (Nonreactive); ~Hepatitis B Surface Antibody NONREACTIVE (Nonreactive); ~Hepatitis C Antibody Nonreactive (Nonreactive)
[2024-02-02 12:49] LABS: FIB-ALT 23 U/L (6-29); FIB-Alpha-2-Macroglobulin 293 mg/dL (106-279); FIB-Apolipoprotein A1 100 mg/dL (101-198); FIB-GGT 141 U/L (3-70); FIB-Haptoglobin 68 mg/dL (43-212); FIB-Total Bilirubin 0.8 mg/dL (0.2-1.2); Liver Fibrosis Score 0.79; Liver Fibrosis Stage F4; Nec Inflam Act Grade A0-A1; Nec Inflam Act Score 0.19
== END 2024-01-18 15:08 | disposition home or self-care (01) ==
LOC: HO.HHCL 15:07
PROVIDERS: Visit Provider Internal Medicine Geriatric Medicine
DX: R11.2 Nausea with vomiting, unspecified (principal); R79.89 Other specified abnormal findings of blood chemistry; F10.11 Alcohol abuse, in remission; Z87.440 Personal history of urinary (tract) infections; R16.0 Hepatomegaly, not elsewhere classified
CPT/HCPCS: 36415; 80053; 81001; 81596; 85025; 86706; 86708; 86709; 86803; 87340

== ENCOUNTER 2024-02-02 15:03 | Outpatient (AMB) | payer MEDICAID, SELFPAY ==
--- NOTE | 2024-02-02 15:24 | MHC.OFFVIS ---
Intake Visit Reasons: urinary incontinence Intake Note: New Patient is present for Urianry Incontinence Urology Med: None Antibiotic Allergy: None Blood Thinner: None Diabetic: No Diabetic Medication: None Past ER Visit for UTI was treated with Cefnidir Discontinued after clear Urinalysis that did no indication infection Recent Ultrasound and CT done in October Urinary Incontinence started Mid October PVR: 14 Senior Front End Web Developer Required: Yes Senior Front End Web Developer Language: Technical Delivery Manager Name: [id number] Bryant Information Interpreted: non-clinical & clinical Allergies No Known Allergies Allergy (Verified 02/02/24 15:29) Medication List - Last Reconciled 02/02/24 by Maddi Manriquez MD buspirone 5 mg PO BID calcium carbonate-vitamin D3 600 mg-20 mcg (800 unit) 1 tab PO DAILY ondansetron 4 mg PO Q6H PRN risperidone (Risperdal) 0.5 mg PO DAILY sertraline (Zoloft) 100 mg PO DAILY solifenacin (Vesicare) 10 mg PO DAILY zolpidem (Ambien) 10 mg PO BEDTIME HPI Comments Details: Lorena is here for new patient evaluation. She states that she has urinary leakage associated with urgency and will sometimes leak before getting to the bathroom. She was seen in the emergency room in October this year at [facility] and treated for UTI. She has also had abdominal and back pain and imaging including CT and ultrasound notable for gallbladder sludge/stones. Review of studies, CT abdomen and pelvis without IV contrast kidneys are within normal limits negative for kidney stones. Urinalysis microscopic hematuria noted. I have discussed further evaluation with office cystoscopy will send urine for cytology and surveillance urine culture. Discussed trial of VESIcare 10 mg daily. Discussed side effects of dry mouth. [facility] Medical History Gallstones Surgical History No pertinent past surgical history Family History Other Family history unknown Social History Unable to assess alcohol history related to: Unknown Review of Systems Const All systems reviewed & are unremarkable except as noted in HPI and below Reports no additional complaints Eyes Reports no additional complaints ENT Reports no additional complaints Card Reports no additional complaints Resp Reports no additional complaints GI Reports no additional complaints Reports as per HPI Musc Reports no additional complaints Skin/Breast Reports system reviewed and no additional complaints, except as documented Neuro Reports no additional complaints Psych Reports no additional complaints Endo Reports no additional complaints Abhi/Lymph Reports no additional complaints Aller/Immun Reports no additional complaints Physical Exam Const General: cooperative, healthy appearing and no acute distress Orientation/consciousness: patient oriented x3 HEENT Head: Yes normal to inspection, Yes normocephalic and Yes atraumatic Eyes Conjunctivae: conjunctivae normal Neck Neck: Yes normal visual inspection and Yes trachea midline Chest Chest palpation & inspection: normal inspection of the chest Resp Effort & Inspection: normal respiratory effort Cardio Rate: regular rate GI Inspection: Yes normal to inspection Palpation (GI): Soft to palpation Skin General skin exam: no rashes or lesions noted Neuro General: patient oriented x3 Extrem General: No edema Psych Appearance: grossly normal Office Procedures Post Void Residual Post Residual Void Post Void Residual (PVR): 14 [id number] Void Residual by ultrasound Results AMB Urinalysis, Automated UA Leukoctes 15 Adrien/uL Last Edit by Caridad Mack [facility] on 02/02/24 15:41 UA Nitrite Negative Last Edit by Caridad Mack [facility] on 02/02/24 15:41 UA Urobilinogen 1 mg/dL Last Edit by Caridad Mack [facility] on 02/02/24 15:41 UA Protein 30 mg/dL Last Edit by Caridad Mack [facility] on 02/02/24 15:41 UA pH 6.0 Last Edit by Caridad Mack [facility] on 02/02/24 15:41 UA Blood 200 Noah/uL Last Edit by Caridad Mack [facility] on 02/02/24 15:41 UA Specific [place] 1.025 Last Edit by Caridad Mack [facility] on 02/02/24 15:41 UA Ketone Positive Last Edit by Caridad Mack [facility] on 02/02/24 15:41 UA Bilirubin 0 mg/dL Last Edit by Caridad Mack [facility] on 02/02/24 15:41 UA Glucose 0 mg/dL Last Edit by Caridad Mack [facility] on 02/02/24 15:41 Results Reviewed Results Reviewed: Laboratory Last Values Urine pH (Auto) 6.0 02/02/24 15:29 Specific [place] (Auto) 1.025 02/02/24 15:29 Urine Protein (Auto) 30 mg/dL 02/02/24 15:29 Glucose (UA)(Auto) 0 mg/dL 02/02/24 15:29 Urine Ketones (Auto) Positive 02/02/24 15:29 Urine Blood (Auto) 200 Noah/uL 02/02/24 15:29 Urine Nitrite (Auto) Negative 02/02/24 15:29 Urine Bilirubin (Auto) 0 mg/dL 02/02/24 15:29 Urine Urobilinogen (Auto) 1 mg/dL 02/02/24 15:29 Leukocyte Esterase (Auto) 15 Adrien/uL 02/02/24 15:29 Date of Service: 11/22/23 EXAMINATION: CT ABDOMEN AND PELVIS WITHOUT CONTRAST CLINICAL INFORMATION: Flank/lower abdominal pain with vomiting COMPARISON: None available. TECHNIQUE: Multidetector volumetric imaging was performed from the superior aspect of the liver through the pubic symphysis. Sagittal and coronal reformatted images were obtained on the technologist's workstation. This CT examination was performed using dose optimization techniques as appropriate, variously including the following: *Automated exposure control *Adjustment of mA and/or kV according to patient size (this includes techniques or standardized protocols for targeted exams where dose is matched to indication/reason for exam; i.e. extremities or head) *Use of iterative reconstruction technique DLP: 475 mGy-cm FINDINGS: LUNG BASES: The visualized lung bases are unremarkable. LIVER, GALLBLADDER, AND BILIARY TREE: Liver is of low attenuation due to hepatic steatosis. There are no intrahepatic masses or ductal dilatation seen. The liver is enlarged. There is no ascites seen possibly small calculi seen. PANCREAS: Unremarkable. SPLEEN: Unremarkable. ADRENAL GLANDS: Unremarkable. KIDNEYS AND URETERS: The kidneys are normal in size, shape, and attenuation. No hydronephrosis, hydroureter, or calculi seen. No perinephric stranding. BLADDER: Unremarkable. GASTROINTESTINAL TRACT: The small and large bowel are unremarkable. The appendix is unremarkable. ABDOMINAL WALL: No significant hernia is appreciated. LYMPH NODES: Normal. VASCULAR: Unremarkable. PELVIC VISCERA: Unremarkable. OSSEOUS STRUCTURES: There are mild degenerative changes with Schmorl's nodes in endplates of L1 T9, T8 vertebral bodies. IMPRESSION: Hepatomegaly and hepatic steatosis. Date of Service: 11/22/23 US ABDOMEN LIMITED CLINICAL INFORMATION: Elevated liver enzymes. Pain. COMPARISON: None available. TECHNIQUE: Real-time imaging of the right upper quadrant abdominal viscera. FINDINGS: The study is limited to evaluation of the gallbladder. There is sludge, versus a stone near the fundus, at 14 x 7 x 8 mm. Gallbladder is contracted and the gallbladder wall is thickened at 7 mm. No evidence for pericholecystic fluid. The patient does report discomfort and tenderness in the right upper quadrant during scanning. Common duct measures 4 mm in diameter. IMPRESSION: Gallbladder sludge or small stones within the contracted gallbladder. The common duct is 7 mm. Assessment & Plan Assessment & Plan (1) Microscopic hematuria: Code(s): R31.29 - Other microscopic hematuria Category: Medical (2) Urinary incontinence: Code(s): R32 - Unspecified urinary incontinence Category: Medical (3) OAB (overactive bladder): Code(s): N32.81 - Overactive bladder Category: Medical Plan Microscopic hematuria. Urine cytology, surveillance urine culture, follow-up office cystoscopy Urinary incontinence associated with urgency. Trial of VESIcare 10 mg daily Orders: Orders AMB Urinalysis Automated Today Z13.9 - Encounter for screening, unspecified AMB Post Void Residual by ultrasound Today R32 - Unspecified urinary incontinence Urine Culture Today N39.0 - Urinary tract infection, site not specified Urine Cytology Today R31.29 - Other microscopic hematuria Medications: New solifenacin (Vesicare) 10 mg PO DAILY 30 tabs 3RF for urine leakage Patient Instructions: The patient had an opportunity to ask questions regarding treatment plan. The patient expressed understanding and agreement with the above treatment plan. The patient is aware they should contact our office by phone for worsening of their current condition or the appearance of new symptoms. Compliance is encouraged with any medications and followup testing that is ordered. It is a privilege to be allowed the opportunity to participate in the urologic care of your patient. If you have any questions or concerns regarding treatment for the above conditions please do not hesitate to contact me. The office telephone contact is [phone]. This note is constructed in part using voice recognition software. While every effort has been made to ensure accuracy brake specialist errors may have been included. Yours sincerely, Maddi Manriquez MD Coding Level of Care Code New Pt Level 4 (34520) Diagnoses Microscopic hematuria R31.29 Urinary incontinence R32 OAB (overactive bladder) N32.81 CPT Codes Post Residual Void - PVR CPT Code: 99263-Zutd Void Residual by ultrasound ([id number])
== END 2024-02-02 16:12 | disposition home or self-care (01) ==
PROVIDERS: PCP Family Medicine; Referring Provider Family Medicine; Visit Provider Urology
DX: R31.29 Other microscopic hematuria (principal); R32 Unspecified urinary incontinence; N32.81 Overactive bladder; Z13.9 Encounter for screening, unspecified
CPT/HCPCS: 99204

== ENCOUNTER 2024-02-02 15:03 | Outpatient (REF) | payer MEDICAID, SELFPAY ==
[2024-02-02 17:01] LABS: Urine Cytology See Pathology rpt
== END 2024-02-02 15:04 | disposition home or self-care (01) ==
LOC: HO.LAB 15:03
PROVIDERS: PCP Family Medicine; Visit Provider Urology
DX: R31.29 Other microscopic hematuria (principal); N39.0 Urinary tract infection, site not specified; R32 Unspecified urinary incontinence; N32.81 Overactive bladder
CPT/HCPCS: 51798; 81003; 87086; 88112; 99202

== ENCOUNTER 2024-02-13 10:31 | Outpatient (AMB) | payer MEDICAID, SELFPAY ==
--- NOTE | 2024-02-13 10:33 | MHC.OFFVIS ---
Vital Signs 02/13/24 10:35 Height 5 ft 4 in Weight 156 lb BMI 26.8 BP 129/77 Blood Pressure Location Rt brachial Position Sitting Pulse 76 Intake Visit Reasons: F/u gallstones re- discuss surgery Intake Note: This patient presents for a follow-up assessment for gallstones, re-discuss surgery. Patient c/o; reports she was having blood in her urine, she saw her urologist and was prescribed a medication to treat it. Highway Patrol Officer Required: Yes Highway Patrol Officer Language: Lawnmower Repair Mechanic Services: Highway Patrol Officer Present Highway Patrol Officer Name: David Information Interpreted: non-clinical & clinical Accompanied by: Niece Allergies No Known Allergies Allergy (Verified 02/13/24 10:45) HPI HPI F/u gallstones re- discuss surgery: Details: [age] year old female here for a follow-up for her gallstones. I had seen her last Nov, 2023 after she had been referred by the ER for gallstones. At that time, she did not seem to have right upper quadrant pain or any symptoms of gallbladder disease. She says she does not have right upper quadrant pain or any right-sided abdominal pain at all. Her main complaint is she he has chronic back pain. She has no GI complaints at this time. [facility] Medical History Gallstones Surgical History No pertinent past surgical history Family History Other Family history unknown Social History Unable to assess alcohol history related to: Unknown Review of Systems Const Denies chills and Denies fever(s) Card Denies chest pain, Denies dyspnea and Denies dyspnea on exertion Resp Denies cough, Denies dyspnea and Denies dyspnea on exertion GI Denies hematochezia and Denies change in bowel habits Denies hematuria Musc Reports back pain and Denies limited range of motion Neuro Denies focal weakness and Denies convulsions Psych Denies depression and Denies mood swings Physical Exam Vital Signs: Last Vital Signs Pulse 76 02/13/24 10:35 BP 129/77 02/13/24 10:35 BMI result Body Mass Index 26.8 Const General: comfortable and no acute distress Orientation/consciousness: patient oriented x3 Neck Neck: Yes no lymphadenopathy Resp Auscultation: clear to auscultation bilaterally Cardio Rhythm: regular rhythm GI Palpation (GI): Soft to palpation, nontender and no guarding Neuro General: patient oriented x3 Assessment & Plan Assessment & Plan (1) Gallstones: Code(s): K80.20 - Calculus of gallbladder without cholecystitis without obstruction Category: Medical Plan: She does not seem to have symptoms related to the gallbladder. I I did review with her the technique of laparoscopic cholecystectomy and possible open cholecystectomy. I explained the risks including but not limited to bleeding, infections, injury to the bile ducts, liver, surrounding bowel, retained stones, bile leak, inherent risks of anesthesia, as well as the benefits and alternatives. On further questioning, she says she does not have any right upper quadrant pain or any right-sided abdominal complaints. She says she will further monitor herself and will come back to the office if she has concerns with regards to gallbladder symptoms down the line. Coding Level of Care Code Est Pt Level 3 (45031) Diagnoses Gallstones K80.20
[2024-02-13 10:35] VITALS: BP 129/77; PULSE 76; BMI 26.8
== END 2024-02-13 11:06 | disposition home or self-care (01) ==
PROVIDERS: PCP Family Medicine; Referring Provider Family Medicine; Visit Provider Surgery
DX: K80.20 Calculus of gallbladder without cholecystitis without obstruction (principal)
CPT/HCPCS: 99213

== ENCOUNTER → 2024-02-13 10:31 | Outpatient (BNVA) | payer MEDICAID, SELFPAY | PROVIDERS: PCP Family Medicine; Visit Provider Surgery | DX: K80.20 Calculus of gallbladder without cholecystitis without obstruction (principal); R31.9 Hematuria, unspecified | CPT/HCPCS: 99212 ==

== ENCOUNTER 2024-02-16 09:55 | Outpatient (AMB) | payer MEDICAID, SELFPAY ==
[2024-02-16 09:58] VITALS: BMI 26.8
--- NOTE | 2024-02-16 09:58 | A.OFFVIS_ITS ---
Vital Signs 02/16/24 09:58 Height 5 ft 4 in Weight 155 lb 15.985 oz BMI 26.8 Intake Visit Reasons: re-discuss lap glenyn Intake Note: This patient presents for an assessment to re-discuss laparoscopic cholecystectomy. Patient c/o; reports she will like to have surgery done because she is afraid she gets a gallbladder attack and she lives alone. [employer] Required: Yes [employer] Language: Partner Alliance Manager Services: [employer] Present Information Interpreted: non-clinical & clinical Accompanied by: Niece Allergies No Known Allergies Allergy (Verified 02/13/24 10:45) Medication List - Last Reconciled 02/16/24 by Anthony Pickens MD buspirone 5 mg PO BID calcium carbonate-vitamin D3 600 mg-20 mcg (800 unit) 1 tab PO DAILY ondansetron 4 mg PO Q6H PRN risperidone (Risperdal) 0.5 mg PO DAILY sertraline (Zoloft) 100 mg PO DAILY solifenacin (Vesicare) 10 mg PO DAILY zolpidem (Ambien) 10 mg PO BEDTIME HPI HPI re-discuss lap glenny: Details: I had seen her earlier this week because of her history of gallstones. This had been asymptomatic. After a long discussion with her, she understood that cholecystectomy may not be necessary at this time. She called the office yesterday to say that she wanted to talk to me again was getting very anxious about her gallstones She still denies any complaints at may be related to her gallstones. She does admit that she has left-sided back pain on and off. According to her daughter who was with her today, the patient has been eating fatty food as well without any problems. [facility] Medical History Gallstones Surgical History No pertinent past surgical history Family History Other Family history unknown Social History Unable to assess alcohol history related to: Unknown Review of Systems Const Denies chills and Denies fever(s) Card Denies chest pain, Denies dyspnea and Denies dyspnea on exertion Resp Denies cough, Denies dyspnea and Denies dyspnea on exertion GI Denies hematochezia and Denies change in bowel habits Denies hematuria Musc Denies back pain and Denies limited range of motion Neuro Denies focal weakness and Denies convulsions Psych Denies depression and Denies mood swings Physical Exam Vital Signs: BMI result Body Mass Index 26.8 Const General: comfortable and no acute distress Orientation/consciousness: patient oriented x3 Neck Neck: Yes no lymphadenopathy Resp Auscultation: clear to auscultation bilaterally Cardio Rhythm: regular rhythm GI Palpation (GI): Soft to palpation, nontender and no guarding Neuro General: patient oriented x3 Assessment & Plan Assessment & Plan (1) Gallstones: Code(s): K80.20 - Calculus of gallbladder without cholecystitis without obstruction Category: Medical Plan: I again had a long discussion with her about occasions for cholecystectomy. I reviewed with her the risks of the procedure She denies any symptoms that may be related to her gallstones. I did explain to her that it does not appear that cholecystectomy is indicated at this time. She just stated that she was anxious about her gallstones especially as she is planning to go to [place] in late May of this year. I told her that if she does develop symptoms, we will schedule her for cholecystectomy. In the absence of symptoms, this may be unnecessary at this time. Her daughter also stated that she does not feel that her mother has symptoms. The patient eventually stated that she will continue to monitor herself. I assured her that she is welcome to come back to the office if she feels she has symptoms with her gallstones. Coding Level of Care Code Est Pt Level 2 (83747) Diagnoses Gallstones K80.20
== END 2024-02-16 10:19 | disposition home or self-care (01) ==
PROVIDERS: PCP Family Medicine; Visit Provider Surgery
DX: K80.20 Calculus of gallbladder without cholecystitis without obstruction (principal)
CPT/HCPCS: 99214

== ENCOUNTER → 2024-02-16 09:55 | Outpatient (BNVA) | payer MEDICAID, SELFPAY | PROVIDERS: PCP Family Medicine; Visit Provider Surgery | DX: K80.20 Calculus of gallbladder without cholecystitis without obstruction (principal) | CPT/HCPCS: 99212 ==

== ENCOUNTER 2024-03-15 13:04 | Outpatient (AMB) | payer MEDICAID, SELFPAY ==
--- NOTE | 2024-03-15 13:18 | MHC.OFFVIS ---
Intake Visit Reasons: cysto Intake Note: Patient is present for Cystoscopy Urology Medication:VESICARE Antibiotic Allergy:NONE Blood Thinner:NONE Lot:[id number] Exp:07/29/2025 Compliance Paralegal Required: No Allergies No Known Allergies Allergy (Verified 03/15/24 13:19) HPI Comments Details: 03/15/24--Here for cysto--Cystoscopy findings: mild trabeculations, no suspicious bladder lesions visualized. Lorena has LUTS urgency, frequency, states SE-vesicare, dry mouth, plan Myrbetriq 50 mg daily. 02/02/24--Lorena is here for new patient evaluation. She states that she has urinary leakage associated with urgency and will sometimes leak before getting to the bathroom. She was seen in the emergency room in October this year at [place] and treated for UTI. She has also had abdominal and back pain and imaging including CT and ultrasound notable for gallbladder sludge/stones. Review of studies, CT abdomen and pelvis without IV contrast kidneys are within normal limits negative for kidney stones. Urinalysis microscopic hematuria noted. I have discussed further evaluation with office cystoscopy will send urine for cytology and surveillance urine culture. Discussed trial of VESIcare 10 mg daily. Discussed side effects of dry mouth. PFSH Medical History Gallstones Surgical History No pertinent past surgical history Family History Other Family history unknown Social History Unable to assess alcohol history related to: Unknown Review of Systems Const All systems reviewed & are unremarkable except as noted in HPI and below Reports no additional complaints Eyes Reports no additional complaints ENT Reports no additional complaints Card Reports no additional complaints Resp Reports no additional complaints GI Reports no additional complaints Reports as per HPI Musc Reports no additional complaints Skin/Breast Reports system reviewed and no additional complaints, except as documented Neuro Reports no additional complaints Psych Reports no additional complaints Endo Reports no additional complaints Abhi/Lymph Reports no additional complaints Aller/Immun Reports no additional complaints Office Procedures Cystoscopy Consent Discussed risk and benefit or proposed procedure with the patient. Information consent for procedure given to the patient. Discussed technical aspects, risks, benefits and alternatives in full. Addressed all of the patient's questions and concerns regarding the procedure. The patient demonstrated knowledge and understanding. They wish to proceed with this procedure. Preparation The patient was prepped in the usual manner. A cartography supervisor was present and in the room. Genitalia was prepped with betadine solution in a sterile manner. Lidocaine Jelly 2% was placed into the urethra and 16Fr flexible Olympus cystoscope was inserted into the meatus after adequate lubrication. Procedure Time out per protocol performed. Bladder Inspection Bladder Inspection: The bladder was inspected in its entirety with utilization retroflexion displaying: Tumor(s): no suspicious bladder lesions visualized Trabeculation: present- Mild Mucosal Erthema: NA Orifices: normal shape and position Urethra: normal Cystoscopy findings: mild trabeculations, no suspicious bladder lesions visualized [id number] DISPOSABLE SCOPE URO-N NEEDLE SCOPE Procedure code (CPT) selection complete Office Meds lidocaine HCl 2 % mucosal jelly in applicator Performing Provider: Maddi Manriquez MD Performing [facility] [place] [facility] Administered by: Tani Tamayo LPN on 03/15/24 13:45 Dose Route Admin Location Dispensed Lot Number Expiration Date ND Ross Lift Operator 10 mL intra-urethral 10 mL naproxen 500 mg tablet Performing Provider: Maddi Manriquez MD Performing Location: [facility] [place] [facility] Administered by: Tani Tamayo LPN on 03/15/24 13:45 Dose Route Admin Location Dispensed Lot Number Expiration Date NDC Ross Lift Operator 500 mg PO 1 tab ciprofloxacin HCl 500 mg tablet Performing Provider: Maddi Manriquez MD Performing Location: [facility] [place] [facility] Administered by: Tani Tamayo LPN on 03/15/24 13:45 Dose Route Admin Location Dispensed Lot Number Expiration Date NDC Ross Lift Operator 500 mg PO 1 tab Results AMB Urinalysis, Automated UA Leukoctes 0 Adrien/uL Last Edit by JULIUS Urias on 03/15/24 13:37 UA Nitrite Negative Last Edit by JULIUS Urias on 03/15/24 13:37 UA Urobilinogen 0.2 mg/dL Last Edit by JULIUS Urias on 03/15/24 13:37 UA Protein 15 mg/dL Last Edit by JULIUS Urias on 03/15/24 13:37 UA pH 6.0 Last Edit by JULIUS Urias on 03/15/24 13:37 UA Blood 0 Noah/uL Last Edit by JULIUS Urias on 03/15/24 13:37 UA Specific Brilliant 1.020 Last Edit by JULIUS Urias on 03/15/24 13:37 UA Ketone Negative Last Edit by JULIUS Urias on 03/15/24 13:37 UA Bilirubin 0 mg/dL Last Edit by JULIUS Urias on 03/15/24 13:37 UA Glucose 0 mg/dL Last Edit by JULIUS Urias on 03/15/24 13:37 Results Reviewed Results Reviewed: Laboratory Last Values Urine pH (Auto) 6.0 03/15/24 13:36 Specific Brilliant (Auto) 1.020 03/15/24 13:36 Urine Protein (Auto) 15 mg/dL 03/15/24 13:36 Glucose (UA)(Auto) 0 mg/dL 03/15/24 13:36 Urine Ketones (Auto) Negative 03/15/24 13:36 Urine Blood (Auto) 0 Noah/uL 03/15/24 13:36 Urine Nitrite (Auto) Negative 03/15/24 13:36 Urine Bilirubin (Auto) 0 mg/dL 03/15/24 13:36 Urine Urobilinogen (Auto) 0.2 mg/dL 03/15/24 13:36 Leukocyte Esterase (Auto) 0 Adrien/uL 03/15/24 13:36 Collected: 02/02/24 [facility] Re[facility]: 02/03/24 Diagnosis Urine: Negative for high-grade urothelial carcinoma. COMMENT: Examination of a monolayer preparation slide shows many red blood cells, occasional benign urothelial cells and squamous cells, and occasional inflammatory cells. Clinical History Microscopic hematuria Material Received Urine Gross Description Received is 8 cc of clear ankush fluid from which a ThinPrep slide is prepared. Date of Service: 11/22/23 EXAMINATION: CT ABDOMEN AND PELVIS WITHOUT CONTRAST CLINICAL INFORMATION: Flank/lower abdominal pain with vomiting COMPARISON: None available. TECHNIQUE: Multidetector volumetric imaging was performed from the superior aspect of the liver through the pubic symphysis. Sagittal and coronal reformatted images were obtained on the technologist's workstation. This CT examination was performed using dose optimization techniques as appropriate, variously including the following: *Automated exposure control *Adjustment of mA and/or kV according to patient size (this includes techniques or standardized protocols for targeted exams where dose is matched to indication/reason for exam; i.e. extremities or head) *Use of iterative reconstruction technique DLP: 475 mGy-cm FINDINGS: LUNG BASES: The visualized lung bases are unremarkable. LIVER, GALLBLADDER, AND BILIARY TREE: Liver is of low attenuation due to hepatic steatosis. There are no intrahepatic masses or ductal dilatation seen. The liver is enlarged. There is no ascites seen possibly small calculi seen. PANCREAS: Unremarkable. SPLEEN: Unremarkable. ADRENAL GLANDS: Unremarkable. KIDNEYS AND URETERS: The kidneys are normal in size, shape, and attenuation. No hydronephrosis, hydroureter, or calculi seen. No perinephric stranding. BLADDER: Unremarkable. GASTROINTESTINAL TRACT: The small and large bowel are unremarkable. The appendix is unremarkable. ABDOMINAL WALL: No significant hernia is appreciated. LYMPH NODES: Normal. VASCULAR: Unremarkable. PELVIC VISCERA: Unremarkable. OSSEOUS STRUCTURES: There are mild degenerative changes with Schmorl's nodes in endplates of L1 T9, T8 vertebral bodies. IMPRESSION: Hepatomegaly and hepatic steatosis. Date of Service: 11/22/23 US ABDOMEN LIMITED CLINICAL INFORMATION: Elevated liver enzymes. Pain. COMPARISON: None available. TECHNIQUE: Real-time imaging of the right upper quadrant abdominal viscera. FINDINGS: The study is limited to evaluation of the gallbladder. There is sludge, versus a stone near the fundus, at 14 x 7 x 8 mm. Gallbladder is contracted and the gallbladder wall is thickened at 7 mm. No evidence for pericholecystic fluid. The patient does report discomfort and tenderness in the right upper quadrant during scanning. Common duct measures 4 mm in diameter. IMPRESSION: Gallbladder sludge or small stones within the contracted gallbladder. The common duct is 7 mm. Assessment & Plan Assessment & Plan (1) Microscopic hematuria: Code(s): R31.29 - Other microscopic hematuria Category: Medical (2) Urinary incontinence: Code(s): R32 - Unspecified urinary incontinence Category: Medical (3) OAB (overactive bladder): Code(s): N32.81 - Overactive bladder Category: Medical Plan Cystoscopy findings: mild trabeculations, no suspicious bladder lesions visualized. Lorena has LUTS urgency, frequency, states SE-vesicare, dry mouth, plan Myrbetriq 50 mg daily. Orders: Orders AMB Urinalysis Automated 03/15/24 Z13.9 - Encounter for screening, unspecified AMB Cystoscopy 03/15/24 N32.81 - Overactive bladder, R32 - Unspecified urinary incontinence, R31.29 - Other microscopic hematuria Medications: New mirabegron ER (Myrbetriq) 50 mg PO DAILY 30 tabs 2RF Patient Instructions: The patient had an opportunity to ask questions regarding treatment plan. The patient expressed understanding and agreement with the above treatment plan. The patient is aware they should contact our office by phone for worsening of their current condition or the appearance of new symptoms. Compliance is encouraged with any medications and followup testing that is ordered. It is a privilege to be allowed the opportunity to participate in the urologic care of your patient. If you have any questions or concerns regarding treatment for the above conditions please do not hesitate to contact me. The office telephone contact is [phone]. This note is constructed in part using voice recognition software. While every effort has been made to ensure accuracy planner/scheduler errors may have been included. Yours sincerely, Maddi Manriquez MD Coding Level of Care Code Est Pt Level 3 (85083) Diagnoses Microscopic hematuria R31.29 Urinary incontinence R32 OAB (overactive bladder) N32.81 CPT Codes Cystoscopy - CPT: 47652-Lwnyohaius ([id number])
== END 2024-03-15 14:32 | disposition home or self-care (01) ==
PROVIDERS: PCP Family Medicine; Visit Provider Urology
DX: N32.81 Overactive bladder (principal); R32 Unspecified urinary incontinence; R31.29 Other microscopic hematuria; Z13.9 Encounter for screening, unspecified
CPT/HCPCS: 52000; 99213

== ENCOUNTER → 2024-03-15 13:04 | Outpatient (BNVA) | payer MEDICAID, SELFPAY | PROVIDERS: PCP Family Medicine; Visit Provider Urology | DX: R31.29 Other microscopic hematuria (principal); R32 Unspecified urinary incontinence; N32.81 Overactive bladder | CPT/HCPCS: 52000; 81003; 99212 ==